=== PATIENT | male | born 1975 | race African-American/Black ===

== ENCOUNTER 2019-12-03 04:29 | Emergency (ER) | payer SELFPAY ==
[2019-12-03 05:07] LABS: ABSOLUTE BASOPHILS # (AUTO) 0.1 10^3/uL (0.0-0.2); ABSOLUTE EOSINOPHILS # (AUTO) 0.1 10^3/uL (0.0-0.6); ABSOLUTE LYMPHOCYTES (AUTO) 4.8 10^3/uL (0.5-4.7); ABSOLUTE MONOCYTES (AUTO) 0.7 10^3/uL (0.1-1.4); ABSOLUTE NEUT (AUTO) 4.1 10^3/uL (1.7-8.2); BASOPHILS % (AUTO) 0.8 % (0-2); EOSINOPHILS % (AUTO) 0.8 % (0-6); HEMATOCRIT 40.5 % (37.9-51.0); LYMPHOCYTES % (AUTO) 48.9 % (13-45); MEAN CORPUSCULAR HEMOGLOBIN 31.4 pg (27.0-33.4); MEAN CORPUSCULAR HGB CONC 34.6 g/dL (32.0-36.0); MEAN CORPUSCULAR VOLUME 91 fl (80-97); MONOCYTES % (AUTO) 7.6 % (3-13); PLATELET COUNT 249 10^3/uL (150-450); RED BLOOD COUNT 4.46 10^6/uL (4.35-5.55); RED CELL DISTRIBUTION WIDTH 14.4 % (11.5-14.0); SEGMENTED NEUTROPHILS % (AUTO) 41.9 % (42-78); TOTAL CELLS COUNTED % (AUTO) 100 %; WHITE BLOOD COUNT 9.8 10^3/uL (4.0-10.5)
[2019-12-03 05:23] LABS: ACETAMINOPHEN < 10 ug/mL (10-30); ALBUMIN 4.3 g/dL (3.5-5.0); ALCOHOL < 10 mg/dL (NONE DETECTED); ALKALINE PHOSPHATASE 77 U/L (38-126); ANION GAP 8 (5-19); ASPARTATE AMINO TRANSFERASE 38 U/L (17-59); BILIRUBIN,TOTAL 0.5 mg/dL (0.2-1.3); BLOOD UREA NITROGEN 14 mg/dL (7-20); CALCIUM 9.5 mg/dL (8.4-10.2); CARBON DIOXIDE 28 mmol/L (22-30); CHLORIDE 106 mmol/L (98-107); GLUCOSE 94 mg/dL (75-110); SALICYLATE < 1.0 mg/dL (2.0-20.0); TOTAL PROTEIN 7.5 g/dL (6.3-8.2)
--- NOTE | 2019-12-03 05:36 | ER Document Report ---
ED Psych Disorder / Suicide - General Mode of Arrival: Ambulatory Information source: Patient - HPI Patient complains to provider of: Suicidal ideation Pain Level: Denies Suicide Risk Factors: Depressed, Male Situational problems related to: Other - Homeless Suicide Attempt Method: Stabbing/Cutting Associated symptoms: Normal affect, Normal mood Similar symptoms previously: Yes Recently seen / treated by doctor: Yes - At [facility] yesterday - Related Data Home Medications: amilodipine, cymbalta <OUMAR HAMPTON - Last Filed: 12/03/19 05:43> <LEAH ODELL - Last Filed: 12/03/19 10:01> <CHRISTOS SWAN - Last Filed: 12/03/19 10:48> - General Chief Complaint: Psych Problem Stated Complaint: SUICIDAL IDEATIONS/ETOH Time Seen by Provider: 12/03/19 05:06 Primary Care Provider: [facility] [Outside] - Follow up as needed Notes: Patient presents reporting a history of depression. Patient states that he felt like he did not want to live and had threatened someone that he would stop himself. Patient was brought here by [facility]. Patient states that he was staying periodically with different friends and family in the [facility]. Patient states that now he is currently homeless. Patient states that yesterday he was at [place] attempting to get long-term placement in a mental health facility. Patient states that they did not have beds and so the mobile structural layout worker picked him up and drove him to [facility] so that he could try to get placed somewhere. Patient states that he drank 12 beers and used cocaine last night. spanish translator Melissa states that patient was not with mobile [facility] but was with a sales representative aircraft from [facility]. Melissa states that [facility] sales representative aircraft states that patient had been discharged but she did not feel elayne ent should go home; so she drove him to [facility] to be seen for placement. (OUMAR HAMPTON) Past Medical History - General Information source: Patient - Social History Smoking Status: Current Some Day Smoker Frequency of alcohol use: 12-14 beers tonight Drug Abuse: Cocaine, Marijuana Lives with: Homeless Family History: Reviewed & Not Pertinent Patient has suicidal ideation: Yes Patient has homicidal ideation: No Pulmonary Medical History: Reports: Hx Sleep Apnea Psychiatric Medical History: Reports: Hx Anxiety, Hx Depression Past Surgical History: Reports: Hx Herniorrhaphy <OUMAR HAMPTON - Last Filed: 12/03/19 05:43> Review of Systems - Review of Systems Constitutional: No symptoms reported EENT: No symptoms reported Cardiovascular: No symptoms reported Respiratory: No symptoms reported Gastrointestinal: No symptoms reported. denies: Vomiting Genitourinary: No symptoms reported Male Genitourinary: No symptoms reported Musculoskeletal: No symptoms reported Skin: No symptoms reported Hematologic/Lymphatic: No symptoms reported Neurological/Psychological: Suicidal ideation <OUMAR HAMPTON - Last Filed: 12/03/19 05:43> Physical Exam - General General appearance: Appears well, Alert In distress: None - HEENT Head: Normocephalic, Atraumatic Eyes: Normal Nasal: Normal Mouth/Lips: Normal Neck: Normal - Respiratory Respiratory status: No respiratory distress Chest status: Nontender Breath sounds: Normal. No: Rales, Rhonchi, Stridor, Wheezing Chest palpation: Normal - Cardiovascular Rhythm: Regular Heart sounds: S1 appreciated, S2 appreciated - Back Back: Normal - Extremities General upper extremity: Normal inspection, Normal ROM General lower extremity: Normal inspection, Normal ROM - Neurological Neuro grossly intact: Yes Cognition: Normal Fulton Coma Scale Eye Opening: Spontaneous F[place]on Coma Scale Verbal: Oriented Mark Coma Scale Motor: Obeys Commands Mark Coma Scale Total: 15 - Psychological Associated symptoms: Normal affect, Normal mood - Skin Skin Temperature: Warm Skin Moisture: Dry Skin Color: Normal <OUMAR HAMPTON - Last Filed: 12/03/19 05:43> - Vital signs Vitals: Temp Pulse Resp BP Pulse Ox 98.3 F 66 18 135/90 H 97 12/03/19 04:36 12/03/19 04:36 12/03/19 04:36 12/03/19 04:36 12/03/19 04:36 Course - Laboratory Result Diagrams: 12/03/19 04:58 12/03/19 04:58 <OUMAR HAMPTON - Last Filed: 12/03/19 05:43> - Laboratory Result Diagrams: 12/03/19 04:58 12/03/19 04:58 <LEAH ODELL - Last Filed: 12/03/19 10:01> - Laboratory Result Diagrams: 12/03/19 04:58 12/03/19 04:58 <CHRISTOS SWAN - Last Filed: 12/03/19 10:48> - Re-evaluation Re-evalutation: 12/03/19 10:46 Patient is an afebrile, well-hydrated, 44-year-old male who presents for mental health evaluation and drug abuse. He did endorse passive SI yesterday without any actual plan. He is denying any SI or HI at this time. Vitals are acceptable. PE is otherwise unremarkable. Patient is nontoxic-appearing and is tolerating p.o. without difficulty. Patient is conversing appropriately at this time. Patient was medically cleared already. He was evaluated by her mental health team and cleared by them as well. Resources have been provided. Patient feels comfortable being discharged at this time. Low suspicion for any sepsis, endocarditis, acute intracranial pathology, meningitis, fracture, acute abdomen, acute withdrawal, or other systemic infection at this time. Patient is aware t hat this condition can change from initial presentation and needs to monitor symptoms closely for any acute changes. Conservative measures otherwise for symptoms. Recheck with your PCM in 3-5 days or as needed otherwise. Return to the ED with any worsening/concerning symptoms otherwise as reviewed discharge. Patient is in agreement. Per MH team: "Impression\\plan: Patient is cleared from acute psychiatric services. Patient presents to [facility] ED after being evaluated by [facility] (formerly [facility] Patient was discharged from psychiatric hospital and mobile structural layout worker brought the patient to [facility] ED for further assistance. Patient reports that he was brought here for assistance in obtaining manager long term care drug treatment and detox. He does confirm he made suicidal comments last night after being discharged from [place] however states he does not remember what he said. When asked why he made comments he stated "I guess I was." Patient is currently homeless and states he understands he is unable to stay in the emergency department while waiting for a long-term treatment rehab bed. Patient is provided resource information to include detox facilities, an application for [facility], information on [facility], and healing Transitions. Dr. Smith was consulted to care management of this patient; attending physicians in agreement with recommendations and disposition." (CHRISTOS SWAN) - Vital Signs Vital signs: Temp Pulse Resp BP Pulse Ox 98.3 F 66 18 135/90 H 97 12/03/19 04:36 12/03/19 04:36 12/03/19 04:36 12/03/19 04:36 12/03/19 04:36 - Laboratory Laboratory results interpreted by me: 12/03/19 12/03/19 04:58 04:58 RDW 14.4 H Lymph % (Auto) 48.9 H Absolute Lymphs (auto) 4.8 H Seg Neutrophils % 41.9 L Salicylates < 1.0 L Acetaminophen < 10 L Discharge <BERTALYUDMILAGRISELHERMANN - Last Filed: 12/03/19 05:43> <LEAH ODELL - Last Filed: 12/03/19 10:01> <CHRISTOS SWAN - Last Filed: 12/03/19 10:48> - Discharge Clinical Impression: Suicidal ideation, Substance abuse Condition: Stable Disposition: HOME, SELF-CARE Additional Instructions: You have been evaluated by both medical and behavioral health teams for substance abuse and suicidal ideation and have been deemed appropriate for discharge. While in the emergency department you received the following services: Medical screening and assessment, nursing services, dietary services, one-on-one counseling and/or psychotherapy, environmental services, and continuous observation by a patient senior safety management consultant. You have been provided a local resource list of area providers including detox facilities and mobile crisis contact information. You have also been provided economic assistance resource list and applications to long-term substance abuse treatment facilities. DEPRESSION: Your evaluation reveals that you have mental depression. While symptoms may be vague, they often include disturbance of sleep, fatigue, loss of appetite, and general loss of interest in life. While depression may be a side effect of drugs, or a reaction to a major change in your life, many cases have no known cause. If depression is acute, and related to a major loss in your life, you can expect it to clear completely with time. If you have been depressed a long time, are prone to repeated bouts of depression or low mood, or have been thinking of suicide, get help. Depression can be treated with anti-depressant medication and counselling. Long-term depression will often take a few weeks to clear, even with appropriate medication. Follow-up care is important. SUICIDAL IDEATION: Suicidal ideation is a common medical term for thoughts about suicide, which may be as detailed as a formulated plan, without the suicidal act itself. Although most people who undergo suicidal ideation do not commit suicide, some go on to make suicide attempts. The range of suicidal ideation varies greatly from fleeting to detailed planning, role playing, and unsuccessful attempts. While thoughts about suicide are common, most people do not carry out se rious actions to commit suicide. Based upon your evaluation and discussion with you, we do not believe you are currently at risk to act upon your thoughts of suicide. You have agreed to return to the Emergency Department, at any time, if you feel inclined to act upon your suicidal thoughts. FOLLOW-UP CARE: If you have been referred to a physician for follow-up care, call the physicians office for an appointment as you were instructed or within the next two days. If you experience worsening or a significant change in your symptoms, notify the physician immediately or return to the Emergency Department at any time for re-evaluation. Maintain adequate fluid and food intake Healthy diet tylenol/motrin if needed Monitor for any worsening symptoms Avoid drug/alcohol use Make sure you are staying hydrated enough to urinate and have normal BM's Recheck with your PCM in 3-5 days or as needed Schedule appointment with mental health facility/detox center as reviewed Return to the ED with any worsening symptoms and/or development of fever, headache, changes in behavior/mentation/vision/speech, chest pain, palpitations, syncope, shortness of breath, trouble breathing, abdominal pain, n/v/d, blood in stool/urine, loss of control of bowel/bladder, urinary retention, muscle w eakness/paralysis, saddle anesthesia, numbness/tingling, suicidal/homicidal ideations, visual/auditory hallucinations, or other worsening symptoms that are concerning to you. Forms: Elevated Blood Pressure Referrals: [facility] [Outside] - Follow up as needed
--- NOTE | 2019-12-03 10:13 | PSYCHOLOGICAL NOTE ---
Psych Note - Psych Note Date seen by psych provider: 12/03/19 Time seen by psych provider: 08:40 Psych Note: Reason For Consult:Suicidal ideation Consent Permissions:none provided And reports that the "crisis lady brought me here for detox." He reports that he has been trying to get detox and was in [facility] and was discharged because "I guess they could not keep me they had no room or something so they had to send me to another one." Patient confirms that he is looking for detox for "a long-term treatment." When asked about making suicidal comments he reports that he did but "I do not remember now" when asked what comments he made. When asked why he made the comments he states "I guess I was." Patient states he has been inpatient psychiatric treatment "everywhere in the critical access hospital." He reports that he has diagnosis of depression, anxiety, sleep apnea and high blood pressure. He reports he is homeless and was recently sleeping at his cousin's house but had to leave. Patient reports that he understands he is unable to stay in the hospital until a long-term residential treatment for substance abuse becomes available and states "I just need to call that lady back, she told me to call her back if I do not get no play here." Patient is alert and orientated to person, place, time and circumstance. Mood is euthymic with congruent affect. Patient denies suicidal and homicidal ideation. Admits to making passive suicidal ideation comments previous evening. Delusions are absent and behaviors congruent with an intact reality based presentation ie organized and linear thought process. Thought content is focused on secondary gain. Eye contact is well-maintained. Conversational speech is at times difficult to understand due to use of slang. Intellectual abilities appear to be within the average range. Attention and concentration are fair. Insight, judgment, impulse control are fair. Impression\\plan: Patient is cleared from acute psychiatric services. Patient presents to [facility] ED after being evaluated by [facility]. Patient was discharged from psychiatric hospital and mobile structural worker brought the patient to [facility] ED for further assistance. Patient reports that he was brought here for assistance in obtaining long term care social worker drug treatment and detox. He does confirm he made suicidal comments last night after being discharged from [facility] however states he does not remember what he said. When asked wh y he made comments he stated "I guess I was." Patient is currently homeless and states he understands he is unable to stay in the emergency department while waiting for a long-term treatment rehab bed. Patient is provided resource information to include detox facilities, an application for [facility], information on [facility], and healing Transitions. Dr. Smith was consulted to care management of this patient; attending physicians in agreement with recommendations and disposition.
[2019-12-03 11:32] VITALS: BP 134/85
--- NOTE | 2019-12-03 18:24 | EKG REPORT ---
SEVERITY:- NORMAL ECG - SINUS RHYTHM : Confirmed by: Rizwana Dozier MD 03-Dec-2019 18:23:44
== END 2019-12-03 11:29 | disposition home or self-care (01) ==
LOC: ER 04:29
DX: R45.851 Suicidal ideations (principal); F19.10 Other psychoactive substance abuse, uncomplicated; F32.9 Major depressive disorder, single episode, unspecified; F17.200 Nicotine dependence, unspecified, uncomplicated; Z59.0 Homelessness
CPT/HCPCS: 36415; 80053; 80307; 85025; 93005; 93010; 99285

== ENCOUNTER 2019-12-06 16:45 | Emergency (ER) | payer SELFPAY ==
--- NOTE | 2019-12-06 17:13 | ER Document Report ---
ED Medical Screen (RME) - General Chief Complaint: Alcohol Withdrawl Stated Complaint: ALCOHOL WITHDRAWAL Time Seen by Provider: 12/06/19 17:01 Mode of Arrival: Ambulatory Information source: Patient Notes: The patient presents stating that he was attempting to get placement at the [facility] but because he has a CPAP machine they would not accept him. Patient states that he is seeking long-term placement for substance abuse. Patient states that he has been drinking every chance he gets and that he will sometimes vomit and then keep drinking. Patient had been treated here recently for passive suicidal ideation. Patient at that time had been requesting patient long-term treatment as he is also homeless. Patient on his last ER visit had reported drinking alcohol then as well and had a negative alcohol level at that time. I have greeted and performed a rapid initial assessment of this patient. A comprehensive ED assessment and evaluation of the patient, analysis of test res ults and completion of the medical decision making process will be conducted by additional ED providers. Past Medical History Pulmonary Medical History: Reports: Hx Sleep Apnea Psychiatric Medical History: Reports: Hx Anxiety, Hx Depression Past Surgical History: Reports: Hx Herniorrhaphy Physical Exam - Vital signs Vitals: Temp Pulse Resp BP Pulse Ox 98.5 F 83 15 142/96 H 97 12/06/19 16:49 12/06/19 16:49 12/06/19 16:49 12/06/19 16:49 12/06/19 16:49 - General General appearance: Appears well, Alert In distress: None - Psychological Associated symptoms: Normal affect, Normal mood Course - Vital Signs Vital signs: Temp Pulse Resp BP Pulse Ox 98.5 F 83 15 142/96 H 97 12/06/19 16:49 12/06/19 16:49 12/06/19 16:49 12/06/19 16:49 12/06/19 16:49
[2019-12-06 18:01] LABS: ALBUMIN 4.5 g/dL (3.5-5.0); ALCOHOL 39 mg/dL (NONE DETECTED); ALKALINE PHOSPHATASE 74 U/L (38-126); ANION GAP 12 (5-19); ASPARTATE AMINO TRANSFERASE 35 U/L (17-59); BILIRUBIN,DIRECT 0.3 mg/dL (0.0-0.4); BILIRUBIN,TOTAL 0.6 mg/dL (0.2-1.3); BLOOD UREA NITROGEN 8 mg/dL (7-20); CALCIUM 9.8 mg/dL (8.4-10.2); CARBON DIOXIDE 25 mmol/L (22-30); CHLORIDE 104 mmol/L (98-107); GLUCOSE 91 mg/dL (75-110); POTASSIUM 3.8 mmol/L (3.6-5.0); TOTAL PROTEIN 8.2 g/dL (6.3-8.2)
[2019-12-06 18:06] LABS: ABSOLUTE BASOPHILS # (AUTO) 0.1 10^3/uL (0.0-0.2); ABSOLUTE EOSINOPHILS # (AUTO) 0.1 10^3/uL (0.0-0.6); ABSOLUTE LYMPHOCYTES (AUTO) 3.6 10^3/uL (0.5-4.7); ABSOLUTE MONOCYTES (AUTO) 0.5 10^3/uL (0.1-1.4); ABSOLUTE NEUT (AUTO) 3.7 10^3/uL (1.7-8.2); BASOPHILS % (AUTO) 0.7 % (0-2); EOSINOPHILS % (AUTO) 1.1 % (0-6); HEMATOCRIT 45.4 % (37.9-51.0); HEMOGLOBIN 15.6 g/dL (13.5-17.0); LYMPHOCYTES % (AUTO) 45.8 % (13-45); MEAN CORPUSCULAR HEMOGLOBIN 31.2 pg (27.0-33.4); MEAN CORPUSCULAR HGB CONC 34.3 g/dL (32.0-36.0); MEAN CORPUSCULAR VOLUME 91 fl (80-97); MONOCYTES % (AUTO) 6.2 % (3-13); PLATELET COUNT 229 10^3/uL (150-450); RED CELL DISTRIBUTION WIDTH 14.4 % (11.5-14.0); SEGMENTED NEUTROPHILS % (AUTO) 46.2 % (42-78); TOTAL CELLS COUNTED % (AUTO) 100 %
--- NOTE | 2019-12-06 18:27 | ER Document Report ---
ED General - General Chief Complaint: ETOH Abuse Stated Complaint: ALCOHOL WITHDRAWAL Time Seen by Provider: 12/06/19 17:01 Mode of Arrival: Ambulatory Information source: Patient Notes: PT COMPLAINS OF WANTING HELP TO GET OFF OF ALCOHOL. H/O DEPRESSION. PT IS HOMELESS. HE HAS BEEN DRINKING "A LITTLE ALCOHOL TODAY." HE WAS BROUGHT HERE FOR HELP WITH SUBSTANCE ABUSE. DENIES SUICIDAL OR HOMICIDAL IDEATIONS. NO OTHER COMPLAINTS. NO CHEST PAIN OR SOB. NO RASHES. NO OTHER COMPLAINTS. - Related Data Allergies/Adverse Reactions: No Known Allergies Allergy (Verified 12/06/19 17:15) Past Medical History - General Information source: Patient - Social History Smoking Status: Never Smoker Frequency of alcohol use: Heavy Family History: Reviewed & Not Pertinent Patient has suicidal ideation: No Patient has homicidal ideation: No Pulmonary Medical History: Reports: Hx Sleep Apnea Psychiatric Medical History: Reports: Hx Anxiety, Hx Depression Past Surgical History: Reports: Hx Herniorrhaphy Review of Systems - Review of Systems Cardiovascular: denies: Chest pain, Palpitations Respiratory: denies: Cough, Short of breath -: Yes All other systems reviewed and negative Physical Exam - Vital signs Vitals: Temp Pulse Resp BP Pulse Ox 98.5 F 83 15 142/96 H 97 12/06/19 16:49 12/06/19 16:49 12/06/19 16:49 12/06/19 16:49 12/06/19 16:49 Interpretation: Hypertensive - General General appearance: Appears well - HEENT Head: Normocephalic Eyes: Normal Pupils: PERRL Mouth/Lips: Normal Pharynx: Normal - Respiratory Respiratory status: No respiratory distress Chest status: Nontender Breath sounds: Normal - Cardiovascular Rhythm: Regular Heart sounds: Normal auscultation Murmur: No - Abdominal Inspection: Normal Distension: No distension Tenderness: Nontender - Back Back: Normal - Extremities General upper extremity: Normal inspection General lower extremity: Normal inspection - Neurological Neuro grossly intact: Yes Cognition: Normal Orientation: AAOx4 Speech: Normal Cranial nerves: Normal Motor strength normal: LUE, RUE, LLE, RLE - Psychological Associated symptoms: Normal affect, Normal mood. No: Uncooperative - Skin Skin Temperature: Warm Skin Moisture: Dry Course - Re-evaluation Re-evalutation: 12/06/19 18:28 LAB REVIEWED. MEDICALLY CLEAR FOR PSYCH EVAL AND PLACEMENT. 12/06/19 18:52 PSYCH HAS EVALUATED PT AND DECIDED CLEAR FOR DISCHARGE. SHE HAS GIVEN COMMUNITY RESOURCES TO PT. HE CURRENTLY DENIES SUICIDAL OR HOMICIDAL IDEATIONS. - Vital Signs Vital signs: Temp Pulse Resp BP Pulse Ox 98.5 F 83 24 H 142/96 H 100 12/06/19 16:49 12/06/19 16:49 12/06/19 18:00 12/06/19 16:49 12/06/19 18:00 - Laboratory Result Diagrams: 12/06/19 17:24 12/06/19 17:24 Laboratory results interpreted by me: 12/06/19 17:24 RDW 14.4 H Lymph % (Auto) 45.8 H - EKG Interpretation by Ri EKG shows normal: Sinus rhythm Rate: Normal Rhythm: NSR Additional EKG results interpreted by me: 12/06/19 19:[address] CHANGES; NORMAL AXIS Discharge - Discharge Clinical Impression: Substance abuse Alcohol intoxication Qualifiers: Complication of substance-induced condition: uncomplicated Qualified Code(s): F10.920 - Alcohol use, unspecified with intoxication, uncomplicated Condition: Stable Disposition: HOME, SELF-CARE Instructions: Acute Alcohol Intoxication ([facility]) Additional Instructions: RETURN AT ONCE IF WORSE OR NEW SYMPTOMS. SEE YOUR DOCTOR FOR RECHECK TOMORROW.
--- NOTE | 2019-12-06 19:10 | PSYCHOLOGICAL NOTE ---
Psych Note - Psych Note Date seen by psych provider: 12/06/19 Time seen by psych provider: 18:50 Psych Note: Attending physician spoke to clinician regarding patient. Mobile crisis has [facility] [place] on 2 [place]. Clinician informed attending physician patient has been provided with resources on multiple occasions, and that the patient needs to follow up with those resources. Patient has been informed behavioral health will not facilitate those placements. Patient has received inpatient services to address mental health and substance abuse concerns. Patient is experiencing homelessness and attempts to use inpatient psychiatric facilities as a means to have his basic needs met. Patient has a history of endorsing SI as a maladaptive coping skill when presented with discharge. Patient's current presentation is best conceptualized as malingering. Patient was provided with a street sheet resources with socioeconomic resources highlighted. Patient was provided with a substance abuse/detox resource list with the contact information for mobile crisis highlighted. The resources were placed in his chart to be given at discharge.
[2019-12-06 19:25] VITALS: BP 151/103
--- NOTE | 2019-12-06 21:30 | EKG REPORT ---
SEVERITY:- BORDERLINE ECG - SINUS RHYTHM BORDERLINE T ABNORMALITIES, INFERIOR LEADS : Confirmed by: Arnel Good MD 06-Dec-2019 21:29:42
== END 2019-12-06 19:25 | disposition home or self-care (01) ==
LOC: ER 16:45
DX: F10.920 Alcohol use, unspecified with intoxication, uncomplicated (principal); G47.30 Sleep apnea, unspecified; Z59.0 Homelessness
CPT/HCPCS: 36415; 80053; 80307; 83690; 83735; 85025; 93005; 93010; 99285